=== PATIENT | female | born 1995 | race Caucasian/White ===

== ENCOUNTER 2019-06-29 04:59 | Inpatient (IN) | payer MEDICAID ==
[~2019-06-29] VITALS: Ht 162.6 cm; Wt 66.3 kg
[~2019-06-29 04:59] MED LIST: IBUP-1222 PO; IBUP-1223 PO; OXYC-302 PO
[2019-06-29 05:08] VITALS: BP 111/75
[2019-06-29] MEDS ORDERED: NEWBORN KIT ONE (05:12)
[2019-06-29] MEDS ORDERED: OXYTOCIN 30U/ 0.9% NaCL 500ML 500 ML ONE (05:16)
[2019-06-29] MEDS ORDERED: SODIUM CITRATE/CITRIC ACID 30 ML UDC ONE (05:16)
[2019-06-29] MEDS ORDERED: METOCLOPRAMIDE 5 MG/ML, 2ML ONE (05:16)
[2019-06-29] MEDS ORDERED: METOCLOPRAMIDE 5 MG/ML, 2ML IV ONE (05:30)
[2019-06-29] MEDS ORDERED: LACTATED RINGERS 1,000 ML IVBOLUS ONE (05:30)
[2019-06-29] MEDS ORDERED: SODIUM CITRATE/CITRIC ACID 30 ML UDC PO ONE (05:30)
[2019-06-29 06:22] LABS: BASOPHILS # (AUTO) 0.01 x10^3/uL (0-0.1); BASOPHILS % (AUTO) 0 % (0-1); EOSINOPHILS # (AUTO) 0.03 x10^3/uL (0-0.4); EOSINOPHILS % (AUTO) 0 % (1-7); LYMPHOCYTES # (AUTO) 1.87 x10^3/uL (1-3.4); LYMPHOCYTES % (AUTO) 27 % (22-44); MD NO; MEAN CORPUSCULAR HEMOGLOBIN 31.5 pg (27.0-34.8); MEAN CORPUSCULAR HGB CONC 33.7 g/dL (32.4-35.8); MEAN CORPUSCULAR VOLUME 93.4 fL (80-100); MONOCYTES # (AUTO) 0.41 x10^3/uL (0.2-0.8); MONOCYTES % (AUTO) 6 % (2-9); NEUTROPHILS # (AUTO) 4.68 x10^3/uL (1.8-6.8); NEUTROPHILS % (AUTO) 67 % (42-75); PLATELET COUNT 163 x10^3/uL (130-400); RED BLOOD COUNT 3.68 x10^6/uL (3.82-5.3); RED CELL DISTRIBUTION WIDTH 13.3 % (9.6-15.2)
[2019-06-29] MEDS ORDERED: KETOROLAC 30 MG/1 ML ONE (07:16)
[2019-06-29] MEDS ORDERED: DEXAMETHASONE 4 MG/ML, 1ML ONE (07:16)
[2019-06-29] MEDS ORDERED: EPHEDRINE 50 MG/ML, 1ML ONE (07:16)
[2019-06-29] MEDS ORDERED: PHENYLEPHRINE 10 MG/ML ONE (07:16)
[2019-06-29] MEDS ORDERED: ONDANSETRON 2MG/ML, 2ML ONE (07:16)
[2019-06-29] MEDS ORDERED: OXYTOCIN 10 UNITS/ML, 1ML ONE (07:16)
[2019-06-29] MEDS ORDERED: CEFAZOLIN 1,000 MG ONE (07:16)
[2019-06-29] MEDS ORDERED: FENTANYL PF 100 MCG/2ML IV PRN (07:30)
[2019-06-29] MEDS ORDERED: EPHEDRINE 50 MG/ML, 1ML IVPush PRN (07:30)
[2019-06-29] MEDS ORDERED: HYDROcodone/APAP 7.5-325MG/15ML UDC PO PRN (07:30)
[2019-06-29] MEDS ORDERED: ALBUTEROL SULFATE 2.5 MG/3 ML NPPB PRN (07:30)
[2019-06-29] MEDS ORDERED: MEPERIDINE/PF 25MG/0.5ML IVPush PRN (07:30)
[2019-06-29] MEDS ORDERED: PROMETHAZINE 25 MG/ML, 1ML IV PRN (07:30)
[2019-06-29] MEDS ORDERED: OXYcodone 5 MG/5 ML ORAL.SOL UDC PO PRN (07:30)
[2019-06-29] MEDS ORDERED: LABETALOL 5MG/ML, 20ML IV PRN (07:30)
[2019-06-29] MEDS ORDERED: hydrALAzine 20 MG/ML, 1ML IV PRN (07:30)
[2019-06-29] MEDS ORDERED: HYDROmorphone 2 MG/ML, 1ML IVPush PRN (07:30)
[2019-06-29] MEDS ORDERED: ONDANSETRON 2MG/ML, 2ML IVPush PRN ×2 (07:30→15:00)
[2019-06-29] MEDS ORDERED: MIDAZOLAM 1 MG/ML, 2ML IV PRN (07:30)
[2019-06-29] MEDS ORDERED: LACTATED RINGERS 1,000 ML IVBOLUS PRN (08:30)
[2019-06-29] MEDS ORDERED: FENTANYL PF 100 MCG/2ML ONE (08:43)
[2019-06-29] MEDS ORDERED: HYDROmorphone 2 MG/ML, 1ML ONE (08:43)
[2019-06-29] MEDS: LACTATED RINGERS 1,000 ML IV SCH ×2 (11:07→21:03)
[2019-06-29] MEDS: OXYTOCIN 30U/ 0.9% NaCL 500ML 500 ML IV SCH ×2 (11:08→21:03)
[2019-06-29 11:45] VITALS: BP 92/61
[2019-06-29] MEDS ORDERED: GLYCERIN ADULT SUPP PR PRN (12:30)
[2019-06-29] MEDS ORDERED: MORPHINE SULFATE 4 MG/ML, 1ML IVPush PRN (12:30)
[2019-06-29] MEDS ORDERED: ACETAMINOPHEN 325 MG TABLET PO PRN (12:30)
[2019-06-29] MEDS ORDERED: morphine SULFATE 10 MG/ML, 1ML IV PRN (12:30)
[2019-06-29] MEDS ORDERED: DIPH,PERTUSS(ACELL),TET VAC/PF NC IM-VACC PRN (12:30)
[2019-06-29] MEDS ORDERED: MISOPROSTOL 200 MCG TABLET PR PRN (12:30)
[2019-06-29] MEDS: OXYcodone/APAP 5/325MG TABLET PO PRN ×3 (15:57→21:17)
[2019-06-29 16:59] VITALS: BP 124/85
[2019-06-29 17:32] LABS: MEAN CORPUSCULAR HEMOGLOBIN 31.6 pg (27.0-34.8); MEAN CORPUSCULAR HGB CONC 34.1 g/dL (32.4-35.8); MEAN CORPUSCULAR VOLUME 92.7 fL (80-100); MEAN PLATELET VOLUME 8.9 fL (7.4-10.4); PLATELET COUNT 162 x10^3/uL (130-400); RED BLOOD COUNT 3.64 x10^6/uL (3.82-5.3); RED CELL DISTRIBUTION WIDTH 13.4 % (9.6-15.2)
[2019-06-29 18:06] LABS: BASOPHILS % (AUTO) 0 % (0-1); EOSINOPHILS % (AUTO) 0 % (1-7); LYMPHOCYTES # (AUTO) 0.87 x10^3/uL (1-3.4); LYMPHOCYTES % (AUTO) 7 % (22-44); MD SCAN; MONOCYTES # (AUTO) 0.52 x10^3/uL (0.2-0.8); MONOCYTES % (AUTO) 4 % (2-9); NEUTROPHILS # (AUTO) 11.89 x10^3/uL (1.8-6.8); NEUTROPHILS % (AUTO) 90 % (42-75)
[2019-06-29] MEDS: SIMETHICONE 80 MG CHEW TAB PO PRN (18:15)
[2019-06-29 19:45] VITALS: BP 111/73
[2019-06-29] MEDS: DOCUSATE 100 MG CAPSULE PO PRN (21:20)
[2019-06-30 01:00] VITALS: BP 103/75
[2019-06-30] MEDS: OXYcodone/APAP 5/325MG TABLET PO PRN ×3 (01:12→09:14)
[2019-06-30] MEDS: SIMETHICONE 80 MG CHEW TAB PO PRN ×2 (01:12→08:04)
[2019-06-30 05:00] VITALS: BP 93/60
[2019-06-30] MEDS: OXYTOCIN 30U/ 0.9% NaCL 500ML 500 ML IV SCH (07:03)
[2019-06-30] MEDS: LACTATED RINGERS 1,000 ML IV SCH (07:03)
[2019-06-30 07:50] VITALS: BP 90/61
[2019-06-30] MEDS: DOCUSATE 100 MG CAPSULE PO PRN (08:04)
[2019-06-30] MEDS ORDERED: PRENATAL VIT/IRON/FA 1 EACH TABLET PO SCH (09:00)
[2019-06-30] MEDS ORDERED: IBUP-1222 PO (13:18)
[2019-06-30] MEDS ORDERED: OXYC-302 PO (13:18)
[2019-06-30] MEDS ORDERED: DIPH,PERTUSS(ACELL),TET VAC/PF NC IM-VACC ONE (14:00)
== END 2019-06-30 13:45 | disposition home or self-care (01) | DRG 785 ==
LOC: LDIP 04:59 → 2NW 11:35
PROVIDERS: ADMIT Obstetrics & Gynecology; ATTEND Obstetrics & Gynecology
PROC: 10D00Z1 Extraction of Products of Conception, Low, Open Approach (ICD-10-PCS; principal; 2019-06-29)
PROC: 0UB70ZZ Excision of Bilateral Fallopian Tubes, Open Approach (ICD-10-PCS; 2019-06-29)
DX: O34.211 Maternal care for low transverse scar from previous cesarean delivery (principal); Z3A.39 39 weeks gestation of pregnancy; Z37.0 Single live birth; Z30.2 Encounter for sterilization
CPT/HCPCS: 36415; 82803; 85025; 86592; 86850; 86900; 86923; 88305; 90715; G0378; J0690; J1100; J1170; J1885; J2405; J3010; J2270; J2370; J2590; J2765; J7120